=== PATIENT | male | born 1940 | race American Indian/Alaskan Native ===

== ENCOUNTER 2016-07-15 09:31 | Emergency (ER) | payer SELFPAY ==
[2016-07-15 10:00] VITALS: BP 193/79
== END 2016-07-15 10:16 | disposition left against medical advice (07) ==
LOC: ED 09:31
DX: M54.2 Cervicalgia (principal); M54.9 Dorsalgia, unspecified; Z53.21 Procedure and treatment not carried out due to patient leaving prior to being seen by health care provider; V89.2XXA Person injured in unspecified motor-vehicle accident, traffic, initial encounter; Y93.89 Activity, other specified; Y99.8 Other external cause status; Y92.89 Other specified places as the place of occurrence of the external cause

== ENCOUNTER 2021-08-03 09:40 | Day surgery (SDC) | payer MEDICARE ==
[~2021-08-03 09:40] MED LIST: SODIUM CHLORIDE 0.9% 1000 ML 1,000 ML IV SCH
[2021-08-03] MEDS ORDERED: LIDOCAINE MPF (2%) 20 MG/1 ML VIAL 5 ML ONE (11:34)
[2021-08-03] MEDS ORDERED: propofoL 200 MG/20 ML VIAL IV ONE (11:34)
--- NOTE | 2021-08-03 12:01 | Short Stay Summary ---
Short Stay Documentation Date of service: 08/03/21 - History H&P: obtained from office - Allergies and Medications Current Medications: Allergies aspirin Allergy (Verified 07/30/21 14:22) Unknown celecoxib [From Celebrex] Allergy (Verified 07/15/16 09:53) Unknown Home Medications Medication Instructions Recorded Confirmed Last Taken Type Clopidogrel 07/30/21 Unknown History Dexilant 07/30/21 Unknown History Ferrous Sulfate [Iron 325 MG] 07/30/21 Unknown History Gabapentin 07/30/21 Unknown History Metoprolol 07/30/21 Unknown History Nortriptyline 07/30/21 Unknown History Sodium Bicarbonate 07/30/21 Unknown History Tramadol HCl 07/30/21 Unknown History Triple [place] 3-6-9 Softgel 07/30/21 Unknown History Vitamin D3 07/30/21 Unknown History hydrALAZINE 07/30/21 Unknown History Active Medications Sodium Chloride (Nacl 0.9% 1000 Ml) 1,000 mls @ 50 mls/hr IV DIRECT ALLAN Stop: 08/03/21 23:01 - Brief post op/procedure progress note Date of procedure: 08/03/21 Procedure: see dictation Estimated blood loss: none Pathology: none Condition: stable - Disposition Condition at discharge: Good Disposition: 01 HOME / SELF CARE / HOMELESS - Discharge Diagnoses (1) History of colon polyps Status: Acute Short Stay Discharge Plan Activity: other (no driving for 24 hours) Weight Bearing Status: Full Weight Bearing Diet: regular Follow up with: ABDOULAYE FROST MD [Primary Care Provider] - 7 Days
--- NOTE | 2021-08-03 12:03 | Operative Report ---
Operative Report Operative Report: Date of procedure: 08/03/2021 Preprocedure diagnosis: History of colon polyps, last study 5 years ago Post procedure diagnosis: Scattered diverticula otherwise normal. Procedure: Colonoscopy to the cecum Endoscopist: Dr. Keys Anesthesia: Monitored anesthesia care per anesthesia department Estimated blood loss: 0 Medications: Monitored anesthesia care. See separate report by anesthesia for details. After careful discussion of the nature and purpose of the procedure as well as details of the technique risks benefits and alternatives the patient gave consent. Please see recent history and physical from the office. The patient was placed in the left lateral decubitus position and medicated per anesthesia. A rectal exam was performed sphincter tone was normal there were no masses palpable. The Chameleon Collectiven 570 scope was passed transanally and advanced under continuous direct vision without difficulty to the cecum. The colon was well prepared. The cecum was normal. The ascending colon was normal and on forward and retroflexed views. The transverse colon, descending colon, and sigmoid colon revealed a few scattered diverticula. The rectum was normal on forward and retroflexed views. The procedure was well-tolerated overall and the patient was observed in recovery. Conclusions: Scattered diverticula. No recurrent polyps. Plan: Repeat colonoscopy as needed in light of age. Signed electronically: Ash Keys M.D.
--- NOTE | 2021-08-03 12:26 | Post Anesthesia Evaluation ---
- Post Anesthesia Evaluation Patient Participated: Yes Airway Patent: Yes Stable Respiratory Function: Yes Nausea/Vomiting: No Temp > 96.8F: Yes Pain Manageable: Yes Adequeate Hydration: Yes Anesthesia Complications: No
--- NOTE | 2021-08-03 12:26 | Anesthesia Consultation ---
Anesthesia Consult and Med Hx Date of service: 08/03/21 - Airway Anesthetic Teeth Evaluation: Good ROM Head & Neck: Adequate Mental/Hyoid Distance: Adequate Mallampati Class: Class III Intubation Access Assessment: Possibly Difficult - Pre-Operative Health Status ASA Pre-Surgery Classification: ASA3 Proposed Anesthetic Plan: MAC - Pulmonary Hx Smoking: Yes (remote hx smoking) Hx Respiratory Symptoms: No - Cardiovascular System Hx Hypertension: Yes Hx Coronary Artery Disease: Yes Hx Percutaneous Transluminal Coronary Angioplasty (PTCA): Yes (x1 2002, off plavix x 6 days) Hx Cardia Arrhythmia: No - Central Nervous System CVA: No - Gastrointestinal Hx Ulcer: Yes - Endocrine Hx Renal Disease: Yes (CKD 4) Hx Liver Disease: No Hx Non-Insulin Dependent Diabetes: Yes (diet controlled) - Additional Comments Anesthesia Medical History Comments: No hx anesthetic complications.
--- NOTE | 2021-08-03 12:26 | Anesthesia Day of Surgery ---
Anesthesia Day of Surgery - Day of Surgery Patient Examined: Yes Patient H&P Reviewed: Yes Patient is NPO: Yes
[2021-08-03 14:18] VITALS: BP 159/59
== END 2021-08-03 12:40 | disposition home or self-care (01) ==
LOC: GIO 09:40
PROVIDERS: ATTEND Internal Medicine Gastroenterology
DX: Z12.11 Encounter for screening for malignant neoplasm of colon (principal); K57.30 Diverticulosis of large intestine without perforation or abscess without bleeding; I25.10 Atherosclerotic heart disease of native coronary artery without angina pectoris; I12.9 Hypertensive chronic kidney disease with stage 1 through stage 4 chronic kidney disease, or unspecified chronic kidney disease; E11.22 Type 2 diabetes mellitus with diabetic chronic kidney disease; N18.4 Chronic kidney disease, stage 4 (severe); Z87.891 Personal history of nicotine dependence; Z86.010 Personal history of colon polyps; Z88.6 Allergy status to analgesic agent; Z88.8 Allergy status to other drugs, medicaments and biological substances; Z79.899 Other long term (current) drug therapy; Z98.890 Other specified postprocedural states; Z86.73 Personal history of transient ischemic attack (TIA), and cerebral infarction without residual deficits
CPT/HCPCS: 82962; G0105; J2704; J7030